=== PATIENT | male | born 1970 | race Two or more races ===

== ENCOUNTER 2020-04-09 06:02 | Day surgery (SDC) | payer OTHER ==
[~2020-04-09 06:02] MED LIST: CALTRATE 600+D1 EAC1 PO
== END 2020-04-09 15:00 | disposition home or self-care (01) ==
LOC: CIR.AMB 06:02
PROVIDERS: ATTEND Orthopaedic Surgery Hand Surgery
DX: S60.552A Superficial foreign body of left hand, initial encounter (principal); Z20.828 Contact with and (suspected) exposure to other viral communicable diseases